=== PATIENT | female | born 1935 | race Two or more races ===

== ENCOUNTER 2019-11-06 11:48 | Emergency (ER) | payer MEDICAID, MEDICARE ==
[~2019-11-06] VITALS: Ht 152.4 cm; Wt 61.4 kg
[2019-11-06] MEDS ORDERED: HYDROcodone/APAP 5/325 TABLET ONE (12:29)
[2019-11-06] MEDS ORDERED: HYDROcodone/APAP 5/325 TABLET PO ONE (12:30)
--- NOTE | 2019-11-06 12:53 | NUR ---
REPORT RECEIVED FROM JAVIER STOUT. ASSUMING PRIMARY CARE OF PT.
[2019-11-06 13:10] LABS: BASOPHILS # (AUTO) 0.06 x10^3/uL (0-0.1); BASOPHILS % (AUTO) 1 % (0-1); EOSINOPHILS # (AUTO) 0.14 x10^3/uL (0-0.4); EOSINOPHILS % (AUTO) 3 % (1-7); LYMPHOCYTES # (AUTO) 1.24 x10^3/uL (1-3.4); LYMPHOCYTES % (AUTO) 21 % (22-44); MD NO; MEAN CORPUSCULAR HEMOGLOBIN 34.3 pg (27.0-34.8); MEAN CORPUSCULAR HGB CONC 33.3 g/dL (32.4-35.8); MEAN CORPUSCULAR VOLUME 103.1 fL (80-100); MEAN PLATELET VOLUME 9.2 fL (7.4-10.4); MONOCYTES % (AUTO) 10 % (2-9); NEUTROPHILS % (AUTO) 65 % (42-75); PLATELET COUNT 190 x10^3/uL (130-400); RED BLOOD COUNT 3.56 x10^6/uL (3.82-5.3); RED CELL DISTRIBUTION WIDTH 13.9 % (9.6-15.2)
[2019-11-06 13:12] VITALS: BP 161/66
--- NOTE | 2019-11-06 13:12 | NUR ---
PT LYING ON GURNEY. DENIES ANY PAIN OR DISCOMFORT AT THIS TIME. AWAITING RESULTS FROM CT SCAN. VSS. DAUGHTER AT BEDSIDE.
[2019-11-06 13:24] LABS: ALKALINE PHOSPHATASE 94 U/L (45-117); BILIRUBIN,TOTAL 0.5 mg/dL (0.2-1.0); TOTAL PROTEIN 6.6 g/dL (6.4-8.2)
[2019-11-06 13:25] LABS: ALANINE AMINOTRANSFERASE 23 U/L (12-78); ALBUMIN 3.4 g/dL (3.4-5.0); ANION GAP 5 mmol/L (5-15); CALCIUM 8.9 mg/dL (8.5-10.1); CHLORIDE 109 mmol/L (98-107); CREATININE 0.73 mg/dL (0.55-1.02)
--- NOTE | 2019-11-06 13:54 | NUR ---
PT DC HOME IN A STABLE CONDITION. DC INSTRUCTIONS WERE DISCUSSED WITH PT'S DAUGHTER. PT'S DAUGHTER VERBALIZED UNERDSTANDING. RN SHOWED PT HOW TO USE WALKER. PT DEMONSTRATED WALKING WITH WALKER. NO QUESTIONS OR CONCERNS AT THAT TIME. PT'S DAUGHTER HELPING PT GET DRESSED.
== END 2019-11-06 13:56 | disposition home or self-care (01) ==
LOC: ED 12:53
DX: S32.511A Fracture of superior rim of right pubis, initial encounter for closed fracture (principal); I10 Essential (primary) hypertension; R94.31 Abnormal electrocardiogram [ECG] [EKG]; W18.39XA Other fall on same level, initial encounter; Y93.89 Activity, other specified; Y92.89 Other specified places as the place of occurrence of the external cause; Y99.8 Other external cause status
CPT/HCPCS: 36415; 72192; 80053; 85025; 93005; 99285